=== PATIENT | female | born 2000 | race African-American/Black ===

== ENCOUNTER 2024-01-28 20:07 | Emergency (ER) | payer SELFPAY ==
[~2024-01-28] VITALS: Ht 170.2 cm; Wt 52.3 kg
[2024-01-28] MEDS ORDERED: Meclizine 12.5 MG TAB PO ONE (21:00)
[2024-01-28 21:17] LABS: BASO # 0.04 K/mm3 (0.02-0.10); EOS # 0.08 K/mm3 (0.04-0.40); EOS % 1.4 % (1.0-5.0); HEMATOCRIT 38.3 % (37.0-47.0); HEMOGLOBIN 12.6 g/dL (12.5-16.0); LYMPH# 2.03 K/mm3 (1.50-4.00); MEAN CELL VOLUME 87 fl (78-100); MEAN CORPUSCULAR HEMOGLOBIN 28 pg (27-31); MEAN CORPUSCULAR HGB CONC 33 g/dL (33-37); MONO # 0.49 K/mm3 (0.20-0.80); NEU # 3.17 K/mm3 (1.40-6.50); PLATELET COUNT 237 K/mm3 (130-400); RED BLOOD COUNT 4.43 M/mm3 (4.10-5.30); RED CELL DISTRIBUTION WIDTH 12.6 % (11.5-14.5); WHITE BLOOD COUNT 5.8 K/mm3 (4.8-10.8)
[2024-01-28 21:22] LABS: ALBUMIN 4.8 g/dL (3.5-5.0)
[2024-01-28 21:25] LABS: TOTAL PROTEIN 8.6 g/dL (6.4-8.3)
[2024-01-28 21:26] LABS: TOTAL BILIRUBIN 0.6 mg/dL (0.2-1.2)
[2024-01-28] MEDS ORDERED: Ketorolac 30 MG/ML VIAL IV ONE (22:15)
[2024-01-28] MEDS ORDERED: diphenhydrAMINE 50 MG/ML 1 ML VIAL IV ONE (22:15)
[2024-01-28 22:48] VITALS: BP 115/75
== END 2024-01-28 22:48 | disposition home or self-care (01) ==
LOC: ED 20:07
PROVIDERS: Family Medicine
DX: G43.909 Migraine, unspecified, not intractable, without status migrainosus (principal); R06.02 Shortness of breath
CPT/HCPCS: J0780; J1200; J1885; J7120